=== PATIENT | male | born 1975 | race Two or more races ===

== ENCOUNTER → 2017-01-11 | Outpatient (CLI) | payer BC ==
--- NOTE | 2017-01-11 15:26 | RAD ---
Ultrasound of the right upper quadrant of the abdomen 01/11/2017 Clinical history: Elevated liver function tests. Technique: A real-time ultrasound examination of the right upper quadrant of the abdomen was performed. Multiple images were obtained. Findings: Comparison study is dated 06/04/2014. The gallbladder is well distended. No gallstones are visualized. The gallbladder wall thickness is within normal limits. No pericholecystic fluid is seen. The common bile duct measures 3 mm in diameter which is within normal limits. The liver is normal in size measuring 16.0 cm in length. Increased echogenicity of the liver parenchyma is seen consistent with mild fatty infiltration. No focal abnormality of the liver is noted. The visualized portions of the pancreas and right kidney are within normal limits. Impression: Mild fatty infiltration of the liver. Otherwise negative study.
== END | disposition home or self-care (01) ==
LOC: US 14:38
PROVIDERS: ATTEND Physician Assistant
DX: K76.0 Fatty (change of) liver, not elsewhere classified (principal); R79.89 Other specified abnormal findings of blood chemistry; R74.8 Abnormal levels of other serum enzymes
CPT/HCPCS: 76705

== ENCOUNTER → 2017-06-21 | Outpatient (CLI) | payer BC ==
[~2017-06-21] MED LIST: IOHEXOL 240 MG/ML 50ML VIAL. ONE; IOHEXOL 300 MG/ML 75 ML VIAL. IV ONE
--- NOTE | 2017-06-21 09:51 | RAD ---
CT of the abdomen with contrast 06/21/2017 Indication: Abdominal pain x3 months. Comparison study: None available. Technique: Multidetector CT imaging of the abdomen was obtained following the administration of IV contrast. Findings: Otherwise lung bases are unremarkable. Liver mildly low in attenuation suggesting some degree of hepatic steatosis. The liver is otherwise unremarkable. Gallbladder is decompressed but otherwise unremarkable. The adrenal glands are within normal limits. Spleen is within normal limits. Kidneys are normal in appearance. Pancreas is grossly unremarkable in appearance. No evidence of bowel obstruction is identified. There is a focal area of decreased caliber of large bowel involving the splenic flexure. Mild bowel thickening may be present. Findings may represent normal colonic peristalsis. However, bowel thickening as could be seen with colitis, or even less likely a mass cannot be completely excluded. The upper abdomen demonstrates no significant free fluid or free air. No acute osseous abnormalities are identified. Impression: Focal area of decreased caliber of large bowel involving the splenic flexure. Finding most likely reflects peristalsis. However, bowel thickening as could be seen with colitis, or even less likely a mass cannot be completely excluded. Follow-up colonoscopy should be considered. PQRS Compliance Statement: One or more of the following individualized dose reduction techniques were utilized for this examination: 1. Automated exposure control 2. Adjustment of the mA and/or kV according to patient size 3. Use of iterative reconstruction technique
== END | disposition home or self-care (01) ==
LOC: CT 07:44
PROVIDERS: ATTEND Family Medicine
DX: R10.9 Unspecified abdominal pain (principal); K21.9 Gastro-esophageal reflux disease without esophagitis; E78.5 Hyperlipidemia, unspecified
CPT/HCPCS: 74160; Q9966; Q9967

== ENCOUNTER 2019-06-08 08:11 | Inpatient (IN) | payer BC ==
[~2019-06-08] VITALS: Ht 167.6 cm; Wt 81.7 kg
[2019-06-08] MEDS ORDERED: IV NORMAL SALINE 1,000ML 1,000 ML IV SCH (08:24)
[2019-06-08] MEDS ORDERED: ASPIRIN 81 MG TAB.CHEW ONE (08:29)
[2019-06-08 08:49] LABS: BASO # 0.1 x10^3/uL (0.0-0.2); BASO % 1 % (0-3); CALCIUM 9.9 mg/dL (8.5-10.1); EOS # 0.2 x10^3/uL (0.0-0.7); EOS % 3 % (0-3); GFR 82.3; HEMATOCRIT 46.5 % (39.0-53.0); HEMOGLOBIN 16.1 g/dL (13.0-17.5); LYMPH # 1.7 x10^3/uL (1.0-4.8); LYMPH % 21 % (24-48); MEAN CORPUSCULAR HEMOGLOBIN 30 pg (25-35); MEAN CORPUSCULAR HGB CONC 35 g/dL (31-37); MEAN CORPUSCULAR VOLUME 86 fL (79-100); MONO # 0.8 x10^3/uL (0.0-1.1); MONO % 10 % (0-9); NEUT # 5.2 x10^3uL (1.8-7.7); NEUT % 66 % (31-73); PLATELET COUNT 254 x10^3/uL (140-400); POTASSIUM 3.8 mmol/L (3.5-5.1); RED BLOOD COUNT 5.39 x10^6/uL (4.30-5.70); RED CELL DISTRIBUTION WIDTH 13.4 % (11.5-14.5); WHITE BLOOD COUNT 7.9 x10^3/uL (4.0-11.0)
--- NOTE | 2019-06-08 08:50 | RAD ---
Examination: PORTABLE CHEST 1V History: Chest pain Comparison/Correlation: None Findings: Portable frontal view chest was obtained with patient upright. Heart size and pulmonary vasculature are normal. No infiltrate or pleural effusion. No pneumothorax. Bony structures unremarkable. Impression: No active disease. Electronically signed by: Orion Borjas MD (06/08/2019 8:47 AM) [facility]
[2019-06-08 08:55] LABS: ALBUMIN 4.2 g/dL (3.4-5.0); ALBUMIN/GLOBULIN RATIO 0.9 (1.0-1.7); TOTAL BILIRUBIN 0.5 mg/dL (0.2-1.0); TOTAL PROTEIN 8.7 g/dL (6.4-8.2)
--- NOTE | 2019-06-08 09:14 | PHYS DOC ---
Past History Past Medical History: Other Additional Past Medical Histor: prostate issues Past Surgical History: Appendectomy Alcohol Use: None Drug Use: None Adult General Chief Complaint Chief Complaint: CHEST PAIN HPI HPI Patient is a 43-year-old male who presents with complaint of chest pain that started a few days ago. Patient indicates that pain is located on the left side of the chest and extends into the center and into the right but no shoulder, arm or back radiation is noted. Patient states that initially pain came and went but over the last 24 hours, pain has been constant. He does indicate that pain waxes and wanes but is not able to really identify any exacerbating factors. He does indicate that he had taken some apple cider vinegar that had improved his symptoms. Currently he rates his pain at about a 5 out of 10 but states that at its worst, pain was around an 8 out of 10. He describes the pain as if it feels like he has 100 pound weight sitting on his chest. He states that it makes him feel like he has difficulty getting a deep breath. He does indicate that he is gotten nauseated with the pain but has not vomited.[] Review of Systems Review of Systems Constitutional: Denies fever or chills [] Respiratory: Denies cough or shortness of breath [] Cardiovascular: No additional information not addressed in HPI [] GI: Denies abdominal pain, vomiting or diarrhea [] Integument: Denies rash or skin lesions [] Neurologic: Denies headache, focal weakness or sensory changes [] All other systems were reviewed and found to be within normal limits, except as documented in this note. Current Medications Current Medications Current Medications Medications (Trade) Dose Ordered Sig/[facility] Start Time Stop Time Status Last Admin Dose Admin Aspirin (Children'S Aspirin) 81 mg STK-MED ONCE 06/08/19 08:29 06/08/19 08:29 DC Nitroglycerin (Nitrostat) 0.4 mg PRN Q5MIN PRN 06/08/19 08:45 Sodium Chloride 1,000 ml @ 1,000 mls/hr Q1H 06/08/19 08:24 06/08/19 09:23 Allergies Allergies Allergies Uncoded Allergies Type Severity Reaction Last Updated Verified PENICILLIN Allergy Unknown 06/21/17 SULFA Allergy Unknown 06/21/17 Physical Exam Physical Exam Constitutional: Well developed, well nourished, no acute distress, non-toxic appearance. [] HENT: Normocephalic, atraumatic, bilateral external ears normal, oropharynx moist, no oral exudates, nose normal. [] Eyes: PERRLA, EOMI, conjunctiva normal, no discharge. [] Neck: Normal range of motion, no tenderness, supple, no stridor. [] Cardiovascular: Regular rate and rhythm[] Lungs & Thorax: Bilateral breath sounds clear to auscultation [] Abdomen: Bowel sounds normal, soft, no tenderness. [] Skin: Warm, dry, no erythema, no rash. [] Extremities: No tenderness, no cyanosis, no clubbing, ROM intact. [] Neurologic: Alert and oriented X 3, no focal deficits noted. [] Current Patient Data Vital Signs Vital Signs Date Time Temp Pulse Resp B/P (MAP) Pulse Ox O2 Delivery O2 Flow Rate FiO2 06/08/19 08:17 98.2 75 16 97 Room Air Lab Results Laboratory Tests Test 06/08/19 08:20 White Blood Count 7.9 x10^3/uL (4.0-11.0) Red Blood Count 5.39 x10^6/uL (4.30-5.70) Hemoglobin 16.1 g/dL (13.0-17.5) Hematocrit 46.5 % (39.0-53.0) Mean Corpuscular Volume 86 fL (79-100) Mean Corpuscular Hemoglobin 30 pg (25-35) Mean Corpuscular Hemoglobin Concent 35 g/dL (31-37) Red Cell Distribution Width 13.4 % (11.5-14.5) Platelet Count 254 x10^3/uL (140-400) Neutrophils (%) (Auto) 66 % (31-73) Lymphocytes (%) (Auto) 21 % (24-48) L Monocytes (%) (Auto) 10 % (0-9) H Eosinophils (%) (Auto) 3 % (0-3) Basophils (%) (Auto) 1 % (0-3) Neutrophils # (Auto) 5.2 x10^3uL (1.8-7.7) Lymphocytes # (Auto) 1.7 x10^3/uL (1.0-4.8) Monocytes # (Auto) 0.8 x10^3/uL (0.0-1.1) Eosinophils # (Auto) 0.2 x10^3/uL (0.0-0.7) Basophils # (Auto) 0.1 x10^3/uL (0.0-0.2) Sodium Level 140 mmol/L (136-145) Potassium Level 3.8 mmol/L (3.5-5.1) Chloride Level 101 mmol/L (98-107) Carbon Dioxide Level 29 mmol/L (21-32) Anion Gap 10 (6-14) Blood Urea Nitrogen 16 mg/dL (8-26) Creatinine 1.0 mg/dL (0.7-1.3) Estimated GFR (Cockcroft-Gault) 82.3 BUN/Creatinine Ratio 16 (6-20) Glucose Level 92 mg/dL (70-99) Calcium Level 9.9 mg/dL (8.5-10.1) Total Bilirubin 0.5 mg/dL (0.2-1.0) Aspartate Amino Transferase (AST) 58 U/L (15-37) H Alanine Aminotransferase (ALT) 156 U/L (16-63) H Alkaline Phosphatase 88 U/L (46-116) Troponin I Quantitative < 0.017 ng/mL (0-0.055) Total Protein 8.7 g/dL (6.4-8.2) H Albumin 4.2 g/dL (3.4-5.0) Albumin/Globulin Ratio 0.9 (1.0-1.7) L Lipase 154 U/L (73-393) EKG EKG EKG demonstrates normal sinus rhythm with rate of 75.[] Radiology/Procedures Radiology/Procedures [] Course & Med Decision Making Course & Med Decision Making Pertinent Labs and Imaging studies reviewed. (See chart for details) [] Dragon Disclaimer Dragon Disclaimer This electronic medical record was generated, in whole or in part, using a voice recognition dictation system. Departure Departure: Impression: Primary Impression: Unstable angina Disposition: ADMITTED INPATIENT Admitting Physician: Benitez Poon Condition: IMPROVED Referrals: KWASI CASE MD (PCP) OSKAR REEVES Jr. DO Jun 08, 2019 09:14
[2019-06-08] MEDS: NITROGLYCERIN SUBLINGUAL 0.4 MG BOTTLE OF 25. SL PRN ×2 (09:38→09:49)
[2019-06-08] MEDS ORDERED: LIDO:MAALOX 1:1 20 ML SINGLE DOSE. PO ONE (10:15)
[2019-06-08 10:30] LABS: BILIRUBIN,URINE NEG (NEG); CLARITY,URINE CLEAR; COLOR,URINE YELLOW; GLUCOSE,URINE NEG (NEG); NITRITE,URINE NEG (NEG); UROBILINOGEN,URINE 0.2 mg/dL (0.2 mg/dL)
[2019-06-08] MEDS ORDERED: IOHEXOL 300 MG/ML 75 ML VIAL. IV ONE (10:30)
[2019-06-08] MEDS ORDERED: ONDANSETRON PF 4 MG/2 ML VIAL. IV PRN (10:30)
[2019-06-08] MEDS ORDERED: MORPHINE SULFATE 2 MG/ML DISP.SYRIN. IV PRN (10:30)
[2019-06-08] MEDS ORDERED: NITROGLYCERIN SUBLINGUAL 0.4 MG BOTTLE OF 25. SL PRN (10:30)
[2019-06-08] MEDS ORDERED: CONTRAST GIVEN MC PRN (10:30)
[2019-06-08 10:33] LABS: BACTERIA,URINE 0 /HPF (0-FEW); RBC,URINE 0 /HPF (0-2); SQUAMOUS EPITHELIAL CELL,UR OCC /LPF
[2019-06-08] MEDS ORDERED: ASPIRIN 81 MG TAB.CHEW PO ONE (11:15)
[2019-06-08 12:22] VITALS: BP 132/84
--- NOTE | 2019-06-08 13:07 | NUR ---
Pt arrived to [facility] at approximately 1215 to room 113. Bed in lowest position, call light within reach. Pt denies any pain at this time. Pt admitted with chest pain which started yesterday. Pt explains he thought it was acid reflux and took own meds. Pt came into ER when pain was unresolved. Pt came from ER with 20 g in the LAC, Room Air, family at bedside. Vital signs stable upon admission. Will continue to monitor and assess per 's orders.
[2019-06-08] MEDS ORDERED: OXYB5TAB10 PO (13:21)
[2019-06-08] MEDS ORDERED: FINA5TAB4 PO (13:21)
[2019-06-08] MEDS ORDERED: FLUT9.9S NS (13:21)
[2019-06-08 13:39] VITALS: BP 132/84
[2019-06-08 14:52] VITALS: BP 152/83
[2019-06-08 19:32] VITALS: BP 127/73
--- NOTE | 2019-06-08 19:42 | HP ---
ADMIT DATE: 06/08/2019 HISTORY OF PRESENT ILLNESS: This is a 43-year-old male patient who came to the emergency room complaining of chest pain that started a few days ago. The patient indicates the pain is located on the left side of chest that extends into the center and to the right, but no shoulder, arm or back radiation is noted. He stated that initially pain came and went, but over the last 24 hours, the pain has been constant. Does indicate that the pain waxes and wanes, but is not able to really identify any exacerbating factors. Exertion and rest does not make any difference. He has taken some apple cider vinegar that has improved his symptoms. Currently, he rates his pain when he arrived to about 5/10, stated at its worst it is about 8/10. Denied any nausea or vomiting. Denied any diaphoresis or shortness of breath. He describes about 100-pound weight sitting on his chest. He stated it makes him feel like he has difficulty getting a deep breath. He does indicate he got nauseated with the pain, but has not vomited. He was extensively evaluated and his lab work showed his first set of cardiac enzyme was less than 0.017 and the plan was to admit him and do 2 more sets of cardiac enzymes, check his fasting lipid profile and consult the cardiology team. PAST MEDICAL HISTORY: Significant for benign prostatic hypertrophy and prostatitis. He does not have any risk factors for coronary artery disease in terms of hypertension, hyperlipidemia or type 2 diabetes. PAST SURGICAL HISTORY: Significant for appendectomy. ALLERGIES: He is allergic to PENICILLIN and SULFA DRUGS. MEDICATIONS: He is currently on following medications: He is on Flonase 2 sprays to each nostril once a day, oxybutynin chloride 5 mg once a day and finasteride 5 mg daily. FAMILY HISTORY: One of his elder brothers of myocardial infarction at the age of 51. His other brother had a heart attack at the age of 45. His younger brother is known to have hypertension. He does not know his sisters very well. His father is still alive at the age of 74 and has 3 stents in his heart. His mother has known coronary artery disease, but has not had any procedure. SOCIAL HISTORY: He is , has 2 daughters. He does not smoke, drink alcohol or use any recreational drugs. 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. REVIEW OF SYSTEMS: As per history of present illness. PHYSICAL EXAMINATION: GENERAL: On arrival to the emergency room, he looked well and was clearly in no apparent respiratory distress. No pallor, jaundice, cyanosis or thyromegaly. No jugular venous distention. No limb edema. VITAL SIGNS: His heart rate was 67, blood pressure 132/84, temperature 97.6, respiratory rate 20, and oxygen saturation was 95%. HEAD, EYES, EARS, NOSE AND THROAT: Showed normocephalic, atraumatic. NECK: Supple. HEART: Showed normal first and second heart sounds. No gallop, rub or murmur. CHEST: Clear to auscultation. No crepitation or rhonchi. ABDOMEN: Distended, soft, nontender. NEUROLOGICALLY: He is awake, alert, responding appropriately. All cranial nerves intact. EXTREMITIES: He moves extremities without difficulty, ambulates without assistance or assistive devices. LABORATORY DATA: His lab work showed a white cell count 7900, hemoglobin 16, hematocrit 46, MCV 86 and platelet count 254,000. His chemistry showed a serum sodium 140, potassium 3.8, chloride 101, bicarbonate 29, anion gap of 10, BUN 16, creatinine 1, estimated GFR was 82 mL per minute. His glucose was 92, calcium was 9.9. Total bilirubin and alkaline phosphatase normal. AST, ALT slightly elevated. His first set of cardiac enzymes showed troponin to be less than 0.017. Total protein was 8.7, albumin was 4.2. Lipase was 154. Urinalysis was essentially unremarkable. His EKG demonstrated sinus rhythm at a rate of 75. In summary, this is a 43-year-old male patient with chest pain that is concerning for cardiac ischemia, although he is not diabetic nor does he have hypertension. He has a very strong family history in that his elder brother of myocardial infarction at the age of 51, his second brother had a heart attack at 45 and his father has 3 stents. My plan is to do 2 more cardiac enzymes, check his fasting lipid profile, consult the cardiology team. ELISABETH COHEN MD DR: SHANI/anali JOB#: [id number] / [id number]
[2019-06-08 22:50] VITALS: BP 147/92
[2019-06-08] MEDS: FINASTERIDE 5 MG TABLET PO SCH (22:58)
[2019-06-08] MEDS: OXYBUTYNIN CHLORIDE 5 MG TABLET PO SCH (22:58)
[2019-06-08] MEDS ORDERED: MELATONIN 3 MG TABLET PO PRN (23:30)
--- NOTE | 2019-06-09 01:16 | EKG ---
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
[2019-06-09 05:36] VITALS: BP 129/81
[2019-06-09 07:42] LABS: CALCIUM 8.7 mg/dL (8.5-10.1); GFR 82.3
[2019-06-09] MEDS: FINASTERIDE 5 MG TABLET PO SCH (09:00)
[2019-06-09] MEDS ORDERED: FLUTICASONE 50MCG/NASAL SPRAY 16GM BOTTLE. NS SCH (09:00)
[2019-06-09] MEDS: OXYBUTYNIN CHLORIDE 5 MG TABLET PO SCH (09:00)
[2019-06-09 11:11] VITALS: BP 126/82
--- NOTE | 2019-06-09 14:33 | PDOC2 ---
CONSULT Date of Admission DATE: 06/09/19 TIME: 14:33 Reason for Consult: Chest pain Referring Physician: Dr. Poon Chief Complaint Chest pain Source: Chart review, Patient Problem List Problems Medical Problems: (1) Unstable angina Status: Acute History of Present Illness 43-year-old male presented complaining of left-sided chest tightness/heaviness 9/10 severity when he was at work yesterday. The pain is presently at 1/10 severity. He had mild associated dyspnea but denied any orthopnea/PND, palpitations or syncope. He did state that he had mild nausea when he had the chest pain. He denied any exertional component to his chest pain. He is normally very active and denied any chest pain or shortness of breath with exertion. He has strong family history of premature coronary artery disease. Past Medical History BPH Past Surgical History Appendectomy Family History Strong family history of premature coronary artery disease Social History Patient denied any smoking alcohol or drug use. 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 [employer] Current Medications Current Medications Sodium Chloride 1,000 ml @ 1,000 mls/hr Q1H IV Last administered on 06/08/19at 09:38; Start 06/08/19 at 08:24; Stop 06/08/19 at 09:23; Status DC Aspirin (Children'S Aspirin) 81 mg STK-MED ONCE .ROUTE ; Start 06/08/19 at 08:29; Stop 06/08/19 at 08:29; Status DC Nitroglycerin (Nitrostat) 0.4 mg PRN Q5MIN PRN SL CHEST PAIN Last administered on 06/08/19at 09:49; Start 06/08/19 at 08:45; Stop 06/08/19 at 10:35; Status DC Multi-Ingredient Mouthwash/Gargle (Gi Cocktail) 20 ml 1X ONCE PO ; Start 06/08/19 at 10:15; Stop 06/08/19 at 11:04; Status DC Iohexol (Omnipaque 300 Mg/ml) 75 ml 1X ONCE IV ; Start 06/08/19 at 10:30; Stop 06/08/19 at 10:31; Status DC Info (Do NOT chart on this entry -- for MONITORING) 1 each PRN DAILY PRN MC SEE COMMENTS; Start 06/08/19 at 10:30; Stop 06/10/19 at 10:29 Ondansetron HCl (Zofran) 4 mg PRN Q4HRS PRN IV NAUSEA/VOMITING; Start 06/08/19 at 10:30; Stop 06/09/19 at 10:29; Status DC Morphine Sulfate (Morphine 2mg Syringe) 2 mg PRN Q2HR PRN IV PAIN; Start 06/08/19 at 10:30; Stop 06/09/19 at 10:29; Status DC Nitroglycerin (Nitrostat) 0.4 mg PRN Q5MIN PRN SL CHEST PAIN; Start 06/08/19 at 10:30; Stop 06/09/19 at 10:29; Status DC Aspirin (Children'S Aspirin) 324 mg 1X ONCE PO ; Start 06/08/19 at 11:15; Stop 06/08/19 at 11:16; Status DC Finasteride (Proscar) 5 mg DAILY PO Last administered on 06/08/19at 22:58; Start 06/08/19 at 23:00 Oxybutynin Chloride (Ditropan) 5 mg DAILY PO Last administered on 06/08/19at 22:58; Start 06/08/19 at 23:00 Fluticasone Propionate (Flonase) 2 spray DAILY NS ; Start 06/09/19 at 09:00 Melatonin (Melatonin) 3 mg PRN QHS PRN PO INSOMNIA Last administered on 06/08/19at 23:26; Start 06/08/19 at 23:30 Active Scripts Active Reported Flonase Allergy Relief (Fluticasone Propionate) 9.9 Ml [place].susp 2 Sprays NS DAILY Oxybutynin Chloride 5 Mg Tablet 1 Tab PO DAILY Finasteride 5 Mg Tablet 5 Mg PO DAILY Allergies: Coded Allergies: Penicillins (Verified Allergy, Unknown, 06/08/19) Sulfa (Sulfonamide Antibiotics) (Verified Allergy, Unknown, 06/08/19) PSYCHOLOGICAL ROS: No: Hallucinations Eyes: No: Loss of vision HEENT: No: Epistaxis Respiratory: No: Hemoptysis Cardiovascular: yes: Chest Pain Gastrointestinal: YES: Nausea; No: Vomiting Genitourinary: No: [place] Neurological: No: Seizures Skin: No: Rash General: Alert, Oriented X3 HEENT: Atraumatic, PERRLA Lungs: Clear to auscultation Heart: Regular rate, No murmurs Abdomen: Soft Extremities: No edema Psych/Mental Status: Mood NL VITALS Vital Signs Date Time Temp Pulse Resp B/P (MAP) Pulse Ox O2 Delivery O2 Flow Rate FiO2 06/09/19 11:11 98.1 76 20 126/82 (97) 96 Room Air Labs Laboratory Tests Test 06/08/19 08:20 06/08/19 10:00 06/08/19 16:25 06/08/19 20:02 White Blood Count 7.9 x10^3/uL (4.0-11.0) Red Blood Count 5.39 x10^6/uL (4.30-5.70) Hemoglobin 16.1 g/dL (13.0-17.5) Hematocrit 46.5 % (39.0-53.0) Mean Corpuscular Volume 86 fL (79-100) Mean Corpuscular Hemoglobin 30 pg (25-35) Mean Corpuscular Hemoglobin Concent 35 g/dL (31-37) Red Cell Distribution Width 13.4 % (11.5-14.5) Platelet Count 254 x10^3/uL (140-400) Neutrophils (%) (Auto) 66 % (31-73) Lymphocytes (%) (Auto) 21 % (24-48) Monocytes (%) (Auto) 10 % (0-9) Eosinophils (%) (Auto) 3 % (0-3) Basophils (%) (Auto) 1 % (0-3) Neutrophils # (Auto) 5.2 x10^3uL (1.8-7.7) Lymphocytes # (Auto) 1.7 x10^3/uL (1.0-4.8) Monocytes # (Auto) 0.8 x10^3/uL (0.0-1.1) Eosinophils # (Auto) 0.2 x10^3/uL (0.0-0.7) Basophils # (Auto) 0.1 x10^3/uL (0.0-0.2) Sodium Level 140 mmol/L (136-145) Potassium Level 3.8 mmol/L (3.5-5.1) Chloride Level 101 mmol/L (98-107) Carbon Dioxide Level 29 mmol/L (21-32) Anion Gap 10 (6-14) Blood Urea Nitrogen 16 mg/dL (8-26) Creatinine 1.0 mg/dL (0.7-1.3) Estimated GFR (Cockcroft-Gault) 82.3 BUN/Creatinine Ratio 16 (6-20) Glucose Level 92 mg/dL (70-99) Calcium Level 9.9 mg/dL (8.5-10.1) Total Bilirubin 0.5 mg/dL (0.2-1.0) Aspartate Amino Transf (AST/SGOT) 58 U/L (15-37) Alanine Aminotransferase (ALT/SGPT) 156 U/L (16-63) Alkaline Phosphatase 88 U/L (46-116) Troponin I Quantitative < 0.017 ng/mL (0-0.055) < 0.017 ng/mL (0-0.055) < 0.017 ng/mL (0-0.055) Total Protein 8.7 g/dL (6.4-8.2) Albumin 4.2 g/dL (3.4-5.0) Albumin/Globulin Ratio 0.9 (1.0-1.7) Lipase 154 U/L (73-393) Urine Collection Type Unknown Urine Color Yellow Urine Clarity Clear Urine pH 6.5 Urine Specific [place] 1.020 Urine Protein Neg (NEG-TRACE) Urine Glucose (UA) Neg mg/dL (NEG) Urine Ketones (Stick) Neg mg/dL (NEG) Urine Blood Neg (NEG) Urine Nitrite Neg (NEG) Urine Bilirubin Neg (NEG) Urine Urobilinogen Dipstick 0.2 mg/dL (0.2 mg/dL) Urine Leukocyte Esterase Neg (NEG) Urine RBC 0 /HPF (0-2) Urine WBC 1-4 /HPF (0-4) Urine Squamous Epithelial Cells Occ /LPF Urine Bacteria 0 /HPF (0-FEW) Urine Mucus Slight /LPF Test 06/09/19 01:00 06/09/19 06:44 Troponin I Quantitative < 0.017 ng/mL (0-0.055) Sodium Level 141 mmol/L (136-145) Potassium Level 4.0 mmol/L (3.5-5.1) Chloride Level 104 mmol/L (98-107) Carbon Dioxide Level 27 mmol/L (21-32) Anion Gap 10 (6-14) Blood Urea Nitrogen 17 mg/dL (8-26) Creatinine 1.0 mg/dL (0.7-1.3) Estimated GFR (Cockcroft-Gault) 82.3 Glucose Level 93 mg/dL (70-99) Calcium Level 8.7 mg/dL (8.5-10.1) Triglycerides Level 184 mg/dL (0-150) Cholesterol Level 238 mg/dL (0-200) LDL Cholesterol, Calculated 151 mg/dL (0-100) VLDL Cholesterol, Calculated 36 mg/dL (0-40) Non-HDL Cholesterol Calculated 187 mg/dL (0-129) HDL Cholesterol 51 mg/dL (40-60) Cholesterol/HDL Ratio 4.0 Assessment/Plan 1. Chest pain with mixed features. Myocardial infarction has been ruled out. He does not have many significant CV risk factors. He does have a strong family history of premature coronary artery disease. Plan for exercise stress echocardiogram as an outpatient. 2. Hyperlipidemia: Start statin therapy Thank you for your consultation FRAN ROGERS MD Jun 09, 2019 14:33
[2019-06-09 14:53] VITALS: BP 125/76
[2019-06-09] MEDS ORDERED: ASPI81TA50 PO (15:54)
[2019-06-09] MEDS ORDERED: ATOR10TA PO (15:54)
--- NOTE | 2019-06-09 17:36 | NUR ---
Pt discharged home. VSS. NAD. Reports CP of 1/10 "more like pressure than pain." Follow up instructions with cardiology discussed with patient. Discharge instructions and materials discussed with patient at length. Questions answered. Healthy cholesterol diet information provided to patient. PIV removed without complications. All belongings accounted for. No injuries or falls reported.
--- NOTE | 2019-06-09 20:52 | DS ---
DATE OF DISCHARGE: 06/09/2019 HOSPITAL COURSE: The patient is a 43-year-old male patient who was admitted with a complaint of chest pain with mixed feature. His myocardial infarction was ruled out; had 3 sets of cardiac enzymes, were negative; however, he has very strong family history of premature coronary artery disease and he was seen in consultation by the Cardiology who planned exercise stress echo as an outpatient. He was also found to have hyperlipidemia for which we started him on Lipitor and was discharged to continue on Lipitor and baby aspirin, to make an appointment with the cardiology team for outpatient stress test. PHYSICAL EXAMINATION: GENERAL: When I saw him today, he looked well and was clearly in no apparent respiratory distress. VITAL SIGNS: His heart rate 81, blood pressure 125/76, temperature 97.3, respiratory rate 20, and oxygen saturation was 95%. The rest of clinical exam is stable. LABORATORY DATA: His lipid profile showed a serum triglyceride 184, total cholesterol 238, LDL was 51, VLDL was 36, and HDL was 551 and the ratio was 4. His BUN is 17, creatinine 1, hemoglobin 16, hematocrit 46 with normal white cell count and platelets. DISCHARGE MEDICATIONS: The patient was discharged home on Lipitor 10 mg at bedtime, baby aspirin 81 mg together with his finasteride 5 mg daily, Flonase 2 sprays to each nostril once a day and oxybutynin chloride 5 mg once a day. FINAL DISCHARGE DIAGNOSES: Chest pain, mixed feature, myocardial infarction was ruled out; hyperlipidemia; benign prostatic hypertrophy, and overactive bladder. ELISABETH COHEN MD DR: SHANI/anali JOB#: [id number] / [id number]
[2019-06-09] MEDS ORDERED: ATORVASTATIN CALCIUM 20 MG TABLET PO SCH (21:00)
== END 2019-06-09 17:49 | disposition home or self-care (01) | DRG 313 ==
LOC: ER 08:11 → 1 SOUTH 11:14
PROVIDERS: ADMIT Internal Medicine; ATTEND Internal Medicine
DX: R07.89 Other chest pain (principal); N40.0 Benign prostatic hyperplasia without lower urinary tract symptoms; E78.5 Hyperlipidemia, unspecified; Z88.0 Allergy status to penicillin; Z88.8 Allergy status to other drugs, medicaments and biological substances; Z82.49 Family history of ischemic heart disease and other diseases of the circulatory system; Z90.49 Acquired absence of other specified parts of digestive tract
CPT/HCPCS: 36415; 71045; 80048; 80053; 80061; 81001; 83690; 84484; 85025; 93005; 96360; 99285-25; J7030

== ENCOUNTER 2021-01-29 09:47 | Emergency (ER) | payer BC, OTHER ==
[~2021-01-29] VITALS: Ht 167.6 cm; Wt 81.8 kg
[~2021-01-29 09:47] MED LIST changes: +ASPI81TA50 PO; +ATOR10TA PO; +FINA5TAB4 PO; +FLUT9.9S NS; -IOHEXOL 240 MG/ML 50ML VIAL. ONE; -IOHEXOL 300 MG/ML 75 ML VIAL. IV ONE; +OXYB5TAB10 PO
[2021-01-29 10:48] VITALS: BP 134/91
[2021-01-29 12:12] LABS: BACTERIA,URINE 0 /HPF (0-FEW); BILIRUBIN,URINE NEG (NEG); CLARITY,URINE CLEAR; COLOR,URINE YELLOW; GLUCOSE,URINE NEG (NEG); NITRITE,URINE NEG (NEG); RBC,URINE 0 /HPF (0-2); SQUAMOUS EPITHELIAL CELL,UR FEW /LPF; UROBILINOGEN,URINE 0.2 mg/dL (0.2 mg/dL)
[2021-01-29] MEDS ORDERED: ONDANSETRON PF 4 MG/2 ML VIAL. IVP ONE (12:30)
[2021-01-29] MEDS ORDERED: IOHEXOL 300 MG/ML 75 ML VIAL. IV ONE (12:30)
[2021-01-29] MEDS ORDERED: KETOROLAC 15 MG/ML VIAL. IVP ONE (12:30)
--- NOTE | 2021-01-29 12:35 | PHYS DOC ---
Past History Past Medical History: Other Additional Past Medical Histor: prostate issues (ANNA CYR APRN) Past Surgical History: Appendectomy (ANNA CYR APRN) Alcohol Use: None Drug Use: None (ANNA CYR APRN) Adult General Chief Complaint Chief Complaint: FLANK PAIN HPI HPI Patient is a 45 male patient presents with left flank pain. Patient reports his pain is started proximally 1 week ago, however this morning it had gotten quite a bit worse. States he had been at work when this had started, however today he had gotten worse while he was just sitting at rest, do nothing. States no history of coughing. No history of trauma. No history of any lifting. States he never had this discomfort in the past. States the discomfort is isolated to his left side. Denies any change in urination. Denies any diarrhea. Denies any fever. States he has not taking thing for the discomfort at all, he has had a little bit of nausea with decreased appetite. Denies any shortness of breath however states he does have some discomfort when he tries to take a deep breath (ANNA CYR APRN) Review of Systems Review of Systems Constitutional: Denies fever or chills [] Eyes: Denies change in visual acuity, redness, or eye pain [] HENT: Denies nasal congestion or sore throat [] Respiratory: Denies cough or shortness of breath [] Cardiovascular: No additional information not addressed in HPI [] GI: Denies abdominal pain, nausea, vomiting, bloody stools or diarrhea [] : Denies dysuria or hematuria [] denies urinary changes denies urinary frequency or dysuria. Musculoskeletal: Denies back pain or joint pain [] states pain to his left side Integument: Denies rash or skin lesions [] Neurologic: Denies headache, focal weakness or sensory changes [] Endocrine: Denies polyuria or polydipsia [] All other systems were reviewed and found to be within normal limits, except as documented in this note. (ANNA CYR APRN) Current Medications Current Medications Current Medications Medications (Trade) Dose Ordered Sig/Damaris Start Time Stop Time Status Last Admin Dose Admin Iohexol (Omnipaque 300 Mg/ml) 75 ml 1X ONCE 01/29/21 12:30 01/29/21 12:31 UNV Ketorolac Tromethamine (Toradol 15mg Vial) 15 mg 1X ONCE 01/29/21 12:30 01/29/21 12:31 UNV Ondansetron HCl (Zofran) 4 mg 1X ONCE 01/29/21 12:30 01/29/21 12:31 UNV (ANNA CYR APRN) Allergies Allergies Allergies Coded Allergies Type Severity Reaction Last Updated Verified Penicillins Allergy Unknown 06/08/19 Yes Sulfa (Sulfonamide Antibiotics) Allergy Unknown 06/08/19 Yes (ANNA CYR APRN) Physical Exam Physical Exam Constitutional: Well developed, well nourished, no acute distress, non-toxic appearance. [] HENT: Normocephalic, atraumatic, bilateral external ears normal, oropharynx moist, no oral exudates, nose normal. [] Eyes: PERRLA, EOMI, conjunctiva normal, no discharge. [] Neck: Normal range of motion, no tenderness, supple, no stridor. [] Cardiovascular:Heart rate regular rhythm, no murmur [] Lungs & Thorax: Bilateral breath sounds clear to auscultation [] tenderness noted to left chest wall, near lower ribs, and in inferior to last rib. No bruising noted surrounding. No mass noted to abdominal palpation however discomfort continues on palpation to surrounding area. Abdomen: Bowel sounds normal, soft, no tenderness, no masses, no pulsatile masses. [] Skin: Warm, dry, no erythema, no rash. [] Back: No tenderness, no CVA tenderness. [] Extremities: No tenderness, no cyanosis, no clubbing, ROM intact, no edema. [] Neurologic: Alert and oriented X 3, normal motor function, normal sensory function, no focal deficits noted. [] Psychologic: Affect normal, judgement normal, mood normal. [] (ANNA CYR APRN) Current Patient Data Vital Signs Vital Signs Date Time Temp Pulse Resp B/P (MAP) Pulse Ox O2 Delivery O2 Flow Rate FiO2 01/29/21 10:48 98.2 75 16 134/91 98 Room Air Lab Results Laboratory Tests Test 01/29/21 10:56 Urine Collection Type Unknown Urine Color Yellow Urine Clarity Clear Urine pH 5.5 Urine Specific Rupert 1.025 Urine Protein Neg (NEG-TRACE) Urine Glucose (UA) Neg mg/dL (NEG) Urine Ketones (Stick) Neg mg/dL (NEG) Urine Blood Neg (NEG) Urine Nitrite Neg (NEG) Urine Bilirubin Neg (NEG) Urine Urobilinogen Dipstick 0.2 mg/dL (0.2 mg/dL) Urine Leukocyte Esterase Neg (NEG) Urine RBC 0 /HPF (0-2) Urine WBC 1-4 /HPF (0-4) Urine Squamous Epithelial Cells Few /LPF Urine Bacteria 0 /HPF (0-FEW) (ANNA CYR APRN) EKG EKG [] (ANNA CYR APRN) Radiology/Procedures Radiology/Procedures PATIENT: PEDRITO WALLSOACCOUNT: [id number]#: [id number] : 1975 LOCATION: ER AGE: 45 SEX: M EXAM STATUS: REG ER ORD. PHYSICIAN: ANNA CYR APRN REASON: pain to left ribs PROCEDURE: RIBS LEFT AND PA CHEST XR RIBS MIN 3 VIEWS LT W/PA CHEST History: Pain to left ribs. Comparison: None. Technique: PA chest with 3 views is of the left ribs. Findings: The lungs are adequately and symmectrically inflated. No airspace consolidation, pleural effusion or pneumothorax. The cardiomediastinal silhoutte and pulmonary vasculature are within normal limits. Soft tissues and osseous structures are unremarkable. No rib fracture or lesion. Impression: 1. No acute cardiopulmonary process. No rib fracture or osseous lesion identi fied. Electronically signed by: Urbano Lambert MD (01/29/2021 1:04 PM) [id number] DICTATED AND SIGNED BY: URBANO LAMBERT MD DATE: 01/29/21 1247 CC: ERASMO GONZALEZ DO; ANNA CYR APRN; KWASI CASE MD ~MTH0 0 [] ATIENT: LIU WALLS ACCOUNT: [id number] : 1975 LOCATION: ER AGE: 45 SEX: M EXAM STATUS: REG ER ORD. PHYSICIAN: ANNA CYR APRN REASON: LUQ pain radiating into left flank. 75mls omni 300 PROCEDURE: CT ABD PELV W/ IV CONTRST ONLY CT STUDY OF THE ABDOMEN AND PELVIS WITH CONTRAST Clinical indications: Left upper quadrant pain radiating into left flank. TECHNIQUE: After IV infusion of 75 cc Optiray 300, helical CT scanning of the abdomen and pelvis was performed. GI contrast was not administered. This may decrease the sensitivity to detect GI tract pathology. PQRS COMPLIANCE STATEMENT One or more of the following individualized dose reduction techniques were utilized for this study: 1. Automated exposure control 2. Adjustment of the mA and/or kV according to patient size 3. Use of iterative reconstruction technique COMPARISON: June 21, 2017. FINDINGS: The liver and spleen and pancreas and gallbladder are normal. No extra hepatic biliary ductal dilatation is seen. No adrenal mass is evident. Both kidneys are normal without hydronephrosis or hydroureter. Urinary bladder wall is smooth. No focal aneurysmal dilatation of the abdominal aorta is seen. No enlarged abdominal or pelvic lymphadenopathy is evident. No obstructive bowel pattern is evident. No free air or free fluid or mesenteric edema is seen. The appendix is not visualized but there are no secondary CT findings of appendicitis. The stomach is not distended. No lung base consolidation is evident. No lytic process is seen. IMPRESSION: No acute abnormality. Electronically signed by: Keke Jj MD (01/29/2021 1:17 PM) [id number] DICTATED AND SIGNED BY: KEKE JJ MD DATE: 01/29/21 1308 CC: ERASMO GONZALEZ DO; ANNA CYR APRN; KWASI CASE MD ~MTH0 0 (ANNA CYR APRN) Heart Score C/O Chest Pain: N/A Risk Factors: Risk Factors: DM, Current or recent (<one month) smoker, HTN, HLP, family history of CAD, obesity. Risk Scores: Risk Factors: DM, Current or recent (<one month) smoker, HTN, HLP, family history of CAD, obesity. (ANNA CYR APRN) Course & Med Decision Making Course & Med Decision Making Pertinent Labs and Imaging studies reviewed. (See chart for details) [] Given left rib/flank pain considerations include kidney stone, rib fracture, pancreatitis, contusion. Will do imaging and labs to evaluate. Review of labs and imaging show no acute processes. With tenderness located over lateral ribs, tenderness on palpation to area without acute abdominal or thoracic processes noted on imaging or lab work done, likely a musculoskeletal process causing the discomfort. Recommend continued use of NSAIDs. Ice. Follow-up as needed. No skin lesions, no bruising noted to area. (ANNA CYR APRN) Course & Med Decision Making I was the Attending physician on the above date of service of this patient. This patient was evaluated, examined, treated, and dispositioned from the emergency department by the mid-level practitioner. Although I was working at the time , no assistance was requested. Electronically signed, Erasmo Gonzalez DO (ERASMO GONZALEZ DO) Dragon Disclaimer Dragon Disclaimer This electronic medical record was generated, in whole or in part, using a voice recognition dictation system. (ANNA CYR APRN) Departure Departure: Impression: Primary Impression: Contusion of rib on left side Disposition: HOME / SELF CARE / HOMELESS Condition: STABLE Referrals: KWASI CASE MD (PCP) Patient Instructions: Rib Contusion Additional Instructions: As we discussed, Tylenol or ibuprofen as needed for discomfort. You may apply an ice pack to your ribs as well. You may take 8 her milligrams of ibuprofen every 8 hours as needed. Feels better, you may apply a Willem wrap or something tight around your chest to help with the discomfort. There was no fracture or other abnormalities noted on your imaging today. Your blood work did not show any concerns with your pancreas. Your chest x-ray did not show any problems with your lungs. Your CAT scan of your abdomen did not show any concerns with your spleen today Problem Qualifiers Primary Impression: Contusion of rib on left side Encounter type: initial encounter Qualified Codes: S20.212A - Contusion of left front wall of thorax, initial encounter ANNA CYR APRN Jan 29, 2021 12:35 ERASMO GONZALEZ DO Jan 30, 2021 07:10
[2021-01-29 12:47] LABS: BASO % 1 % (0-3); EOS # 0.1 x10^3/uL (0.0-0.7); EOS % 2 % (0-3); HEMATOCRIT 44.2 % (39.0-53.0); HEMOGLOBIN 15.1 g/dL (13.0-17.5); LYMPH # 1.7 x10^3/uL (1.0-4.8); LYMPH % 21 % (24-48); MEAN CORPUSCULAR HEMOGLOBIN 30 pg (25-35); MEAN CORPUSCULAR HGB CONC 34 g/dL (31-37); MEAN CORPUSCULAR VOLUME 88 fL (79-100); MONO # 0.7 x10^3/uL (0.0-1.1); MONO % 9 % (0-9); NEUT # 5.4 x10^3uL (1.8-7.7); NEUT % 68 % (31-73); PLATELET COUNT 266 x10^3/uL (140-400); RED BLOOD COUNT 5.04 x10^6/uL (4.30-5.70); RED CELL DISTRIBUTION WIDTH 13.7 % (11.5-14.5)
[2021-01-29 12:56] LABS: CALCIUM 8.7 mg/dL (8.5-10.1); GFR 81.6; POTASSIUM 4.3 mmol/L (3.5-5.1)
--- NOTE | 2021-01-29 13:06 | RAD ---
XR RIBS MIN 3 VIEWS LT W/PA CHEST History: Pain to left ribs. Comparison: None. Technique: PA chest with 3 views is of the left ribs. Findings: The lungs are adequately and symmectrically inflated. No airspace consolidation, pleural effusion or pneumothorax. The cardiomediastinal silhoutte and pulmonary vasculature are within normal limits. Sof t tissues and osseous structures are unremarkable. No rib fracture or lesion. Impression: 1. No acute cardiopulmonary process. No rib fracture or osseous lesion identified. Electronically signed by: Urbano Forbes MD (01/29/2021 1:04 PM) [id number]
[2021-01-29 13:10] LABS: ALBUMIN 4.2 g/dL (3.4-5.0); MAGNESIUM 2.4 mg/dL (1.8-2.4); TOTAL BILIRUBIN 0.4 mg/dL (0.2-1.0); TOTAL PROTEIN 8.5 g/dL (6.4-8.2)
--- NOTE | 2021-01-29 13:19 | RAD ---
CT STUDY OF THE ABDOMEN AND PELVIS WITH CONTRAST Clinical indications: Left upper quadrant pain radiating into left flank. TECHNIQUE: After IV infusion of 75 cc Optiray 300, helical CT scanning of the abdomen and pelvis was performed. GI contrast was not administered. This may decrease the sensitivity to detect GI tract pat hology. PQRS COMPLIANCE STATEMENT One or more of the following individualized dose reduction techniques were utilized for this study: 1. Automated exposure control 2. Adjustment of the mA and/or kV according to patient size 3. Use of iterative reconstruction technique COMPARISON: June 21, 2017. FINDINGS: The liver and spleen and pancreas and gallbladder are normal. No extra hepatic biliary duct al dilatation is seen. No adrenal mass is evident. Both kidneys are normal without hydronephrosis or hydroureter. Urinary bladder wall is smooth. No focal aneurysmal dilatation of the abdominal aorta is seen. No enlarged abdominal or pelvic lymphadenopathy is evident. No obstructive bowel pattern is ev ident. No free air or free fluid or mesenteric edema is seen. The appendix is not visualized but ther e are no secondary CT findings of appendicitis. The stomach is not distended. No lung base consolidat ion is evident. No lytic process is seen. IMPRESSION: No acute abnormality. Electronically signed by: Iain Jj MD (01/29/2021 1:17 PM) [id number]
== END 2021-01-29 14:23 | disposition home or self-care (01) ==
LOC: ER 09:47
DX: S20.212A Contusion of left front wall of thorax, initial encounter (principal); Z88.0 Allergy status to penicillin; Z88.2 Allergy status to sulfonamides; X58.XXXA Exposure to other specified factors, initial encounter; Y93.89 Activity, other specified; Y92.89 Other specified places as the place of occurrence of the external cause; Y99.8 Other external cause status
CPT/HCPCS: 36415; 71101; 74177; 80053; 81001; 83690; 83735; 84484; 85025; 96374; 96375; 99285; J1885; J2405; Q9967

== ENCOUNTER → 2021-07-13 | Outpatient (CLI) | payer OTHER ==
--- NOTE | 2021-07-13 08:44 | RAD ---
EXAM: PA and Lateral Views of the Chest DATE: 07/13/2021 8:38 AM INDICATION: Reason: COUGH COMPARISON: 01/29/2021 FINDINGS: The heart is not enlarged. Mediastinal and hilar contours are normal. No focal parenchymal airspace opacity. No pleural effusion or pneumothorax. IMPRESSION: 1. No radiographic evidence for acute cardiopulmonary process. Electronically signed by: Kristian Rogers MD (07/13/2021 8:42 AM) [id number]
== END ==
LOC: RAD 08:25
PROVIDERS: ATTEND Nurse Practitioner Family
DX: R06.02 Shortness of breath (principal); R05.9 Cough, unspecified
CPT/HCPCS: 71046